=== PATIENT | male | born 1950 | race Caucasian/White ===

== ENCOUNTER 2024-03-14 12:11 | Inpatient (IN) | payer BC ==
[2024-03-14] MEDS ORDERED: Sodium Chloride 0.9% 100 ML ONE (12:30)
[2024-03-14] MEDS ORDERED: Fentanyl 250 MCG/5 ML VIAL ONE ×2 (12:34→15:08)
[2024-03-14] MEDS ORDERED: Midazolam HCl 2 mg/2 ml Vial ONE ×4 (12:34→20:00)
[2024-03-14] MEDS ORDERED: Lidocaine 2% PF 5 ML VIAL ONE ×2 (12:34→13:33)
[2024-03-14] MEDS ORDERED: PROPOFOL 20 ML ONE ×2 (12:34→13:33)
[2024-03-14] MEDS ORDERED: Rocuronium Bromide 10 MG/ML (10ML VIAL) ONE ×2 (12:36→17:45)
[2024-03-14] MEDS ORDERED: Etomidate 40 MG (20 mL) VIAL ONE (13:32)
[2024-03-14 13:45] LABS: #Basophils Less than 0.03 10x3/uL (0.0-0.2); %Basophils 0.3 % (0.0-1.0); %Eosinophils 1.9 % (0.0-10.0); %Lymphocytes 31.8 % (21.0-51.0); %Monocytes 7.3 % (0.0-10.0); %Neutrophils 58.5 % (42.0-75.0); Hematocrit 44.1 % (42.0-52.0); Hemoglobin 14.8 g/dL (14.0-18.0); Mean Corpuscular HGB CONC 33.6 g/dL (32.0-36.0); Mean Corpuscular Hemoglobin 29.9 pg (27.0-31.0); Mean Corpuscular Volume 89.1 fL (78.0-98.0); Mean Platelet Volume 11.2 fL (7.4-10.4); Platelet Count 160 10x3/uL (130-400); RBC Distribution Width 12.2 % (11.5-14.5); Red Blood Cell (RBC) Count 4.95 mill/uL (4.70-6.10)
[2024-03-14 13:55] LABS: Hemoglobin A1c 4.8 % (4.0-6.0)
[2024-03-14 13:59] LABS: Prothrombin Time 12.8 sec (12.0-14.7)
[2024-03-14 14:00] LABS: PTT 31.5 sec (22.9-36.1)
[2024-03-14] MEDS ORDERED: Insulin Regular, Human 100 UNIT/ML 10 ML VIAL ONE (14:11)
[2024-03-14 14:21] LABS: Anion Gap 10 mmol/L (10-20); BUN (Urea Nitrogen) 23 mg/dL (8.4-25.7); Calc. Creatinine Clearance 0 mL/min (70-130); Calcium 9.5 mg/dL (7.8-10.44); Carbon Dioxide 27 mmol/L (23-31); Cardiac Risk 4.2 (Less than 4.5); Chloride 107 mmol/L (98-107); Cholesterol 212 mg/dl (< 200 Desired); Estimated GFR 76; Glucose 87 mg/dL (83-110); HDL Cholesterol 50 mg/dL (>60 Neg Risk); LDL Cholesterol, Calculated 144 mg/dL; Potassium 4.1 mmol/L (3.5-5.1); Sodium 140 mmol/L (136-145); Triglycerides 91 mg/dL (Less than 150)
[2024-03-14] MEDS ORDERED: Papaverine 60 MG/2 ML VIAL ONE (14:35)
[2024-03-14] MEDS ORDERED: Thrombin 5000 UNITS/5 ML VIAL ONE (14:35)
[2024-03-14] MEDS ORDERED: ePHEDrine Sulfate 50 MG/10 ML VIAL ONE (14:35)
[2024-03-14] MEDS ORDERED: Calcium Chloride 1 GM/10 ML Abboject SYRINGE ONE (14:35)
[2024-03-14] MEDS ORDERED: Aminocaproic Acid 5 GM/20 ML VIAL ONE ×2 (14:35→18:47)
[2024-03-14] MEDS ORDERED: Protamine Sulfate 250 MG/25 ML VIAL ONE (14:35)
[2024-03-14] MEDS ORDERED: Mannitol 12.5 GM/50 ML ONE (14:35)
[2024-03-14] MEDS ORDERED: Heparin 5,000 UNITS/ML VIAL ONE ×2 (14:35→16:53)
[2024-03-14] MEDS ORDERED: PHENYLEPHRINE-NS 100 MCG/ML 10 ML SYRINGE ONE (14:35)
[2024-03-14] MEDS ORDERED: Vancomycin 1 GM VIAL ONE (14:35)
[2024-03-14] MEDS ORDERED: Heparin 30,000 units/30 ml VIAL ONE (14:35)
[2024-03-14] MEDS ORDERED: Sodium Bicarb 50 mEq/50 ML VIAL ONE (14:35)
[2024-03-14] MEDS ORDERED: Cardioplegic Soln 1,000 ML BAG ONE (14:35)
[2024-03-14] MEDS ORDERED: Magnesium 5 GM/10 ML VIAL ONE (14:35)
[2024-03-14] MEDS ORDERED: Lidocaine 2% PF 100 mg/5 ml Syringe ONE (14:35)
[2024-03-14] MEDS ORDERED: Potassium Chloride 60 mEq (30 mL) VIAL ONE (14:35)
[2024-03-14] MEDS ORDERED: EPINEPHrine 1 MG/ML VIAL ONE (15:14)
[2024-03-14] MEDS ORDERED: Vecuronium 10 MG VIAL ONE (20:01)
[2024-03-14] MEDS ORDERED: Guaifenesin DM 100-10/5 ML UDCUP PO PRN (21:19)
[2024-03-14] MEDS ORDERED: Ipratropium/Albuterol 3 ML NEB NEB PRN (21:19)
[2024-03-14] MEDS ORDERED: Promethazine HCl 25 MG/ML VIAL IM PRN (21:19)
[2024-03-14] MEDS ORDERED: Potassium Chloride 20 MEQ (100 mL) BAG IVPB PRN (21:19)
[2024-03-14] MEDS ORDERED: hydrALAZINE 20 MG/ML VIAL SLOW IVP PRN (21:19)
[2024-03-14] MEDS ORDERED: Morphine 2 MG/ML VIAL SLOW IVP PRN (21:19)
[2024-03-14] MEDS ORDERED: Bisacodyl 10 MG SUPP PR PRN (21:19)
[2024-03-14] MEDS ORDERED: Bisacodyl 5 MG TAB PO PRN (21:19)
[2024-03-14] MEDS ORDERED: Mag-Al 1200 mg/1200 mg/30 ML UDCUP PO PRN (21:19)
[2024-03-14] MEDS ORDERED: Albumin 5% 12.5 GM (250 mL) BOT IVPB PRN (21:19)
[2024-03-14] MEDS ORDERED: HYDROcodone/Acetaminophen 5/325 mg Tablet PO PRN ×2 (21:19)
[2024-03-14] MEDS ORDERED: Dextrose 50% Abboject 50 ML SYRINGE SLOW IVP PRN (21:30)
[2024-03-14] MEDS ORDERED: INSULIN REGULAR IN 0.9 % NACL 100 UNITS in Premix 1 BAG IVPB SCH (21:30)
[2024-03-14] MEDS ORDERED: Dextrose 5% in Water 1,000 ML IV PRN (21:30)
[2024-03-14] MEDS ORDERED: Glucagon 1 MG/ML KIT SC PRN (21:30)
[2024-03-14 21:32] LABS: Actual Bicarbonate (HCO3a) 19.3 mEq/L (22-28); Base Excess (BEa) -7.6 mEq/L (-2.0 to +3.0); CO2 Tension 44.3 mmHg (35.0-45.0); Calcium, Ionized (arterial) 1.09 mmol/L (1.12-1.30); Carboxyhemoglobin (COHb) 0.6 gm% (0.0-3.0); Hematocrit-ABG 40 % (42.0-52.0); Hemoglobin (Hb) 13.5 g/dL (14.0-18.0); O2 Tension (PaO2), arterial 170.9 mmHg (> 70.0); Potassium - ABG Lab 3.97 mmol/L (3.70-5.30); pH, Arterial 7.257 (7.35-7.45)
[2024-03-14 21:37] LABS: Puncture Site A-LINE
[2024-03-14 21:38] LABS: ALV-art Gradient 201.525 mmHg (0-20)
[2024-03-14 21:43] LABS: #Basophils 0.03 10x3/uL (0.0-0.2); %Basophils 0.1 % (0.0-1.0); %Eosinophils 0.4 % (0.0-10.0); %Lymphocytes 9.5 % (21.0-51.0); %Monocytes 5.4 % (0.0-10.0); %Neutrophils 83.9 % (42.0-75.0); Hematocrit 37.9 % (42.0-52.0); Mean Corpuscular HGB CONC 34.3 g/dL (32.0-36.0); Mean Corpuscular Hemoglobin 29.8 pg (27.0-31.0); Mean Corpuscular Volume 86.9 fL (78.0-98.0); Mean Platelet Volume 11.4 fL (7.4-10.4); Platelet Count 156 10x3/uL (130-400); RBC Distribution Width 12.1 % (11.5-14.5); Red Blood Cell (RBC) Count 4.36 mill/uL (4.70-6.10)
[2024-03-14] MEDS: CEFAZOLIN 2 GM in Sodium Chloride 0.9% 100 ML IVPB SCH (21:52)
[2024-03-14 21:53] LABS: INR-International Normal Ratio 1.1; Prothrombin Time 14.2 sec (12.0-14.7)
[2024-03-14] MEDS: Magnesium 2 GM/50 ML(in water) 2 GM in Premix 1 BAG IVPB SCH (21:53)
[2024-03-14] MEDS: fentaNYL 50 mcg/mL 1 mL Vial SLOW IVP PRN (21:53)
[2024-03-14 21:54] LABS: PTT 32.2 sec (22.9-36.1)
[2024-03-14 21:59] LABS: Anion Gap 13 mmol/L (10-20); BUN (Urea Nitrogen) 19 mg/dL (8.4-25.7); Calc. Creatinine Clearance 0 mL/min (70-130); Calcium 7.6 mg/dL (7.8-10.44); Carbon Dioxide 19 mmol/L (23-31); Chloride 114 mmol/L (98-107); Estimated GFR 92; Glucose 143 mg/dL (83-110); Potassium 4.1 mmol/L (3.5-5.1); Sodium 142 mmol/L (136-145)
[2024-03-14] MEDS: Sodium Chloride 0.9% 1,000 ML IV SCH (22:28)
[2024-03-14] MEDS: Post-Op Insulin Drip Protocol IVPB ONE (22:28)
[2024-03-14] MEDS: Acetaminophen 325 MG TAB PO SCH (22:29)
[2024-03-14] MEDS: Sodium Bicarb 50 MEQ/50 ML Abboject 8.4% SYRINGE IVP SCH (22:32)
[2024-03-14] MEDS: niCARdipine 25 MG in Sodium Chloride 0.9% 250 ML 250 ML IVPB SCH (22:40)
[2024-03-14 22:54] VITALS: BMI 31.4
[2024-03-15] MEDS: Aspirin Chewable 81 MG TAB PO SCH
[2024-03-15] MEDS: Ketorolac Tromethamine 30 MG (1 mL) VIAL IVP SCH (00:03)
[2024-03-15] MEDS: Insulin Regular, Human 100 UNIT/ML 10 ML VIAL SC PRN (00:23)
[2024-03-15] MEDS: fentaNYL 50 mcg/mL 1 mL Vial SLOW IVP PRN (03:26)
[2024-03-15] MEDS: Albumin 5% 12.5 GM (250 mL) BOT IVPB PRN (04:33)
[2024-03-15] MEDS: NOREPINEPHRINE 8 MG/250 ML-D5W 250 ML IVPB PRN (04:34)
[2024-03-15 06:06] LABS: #Basophils Less than 0.03 10x3/uL (0.0-0.2); #Eosinphils Less than 0.03 10x3/uL (0.0-0.7); %Basophils 0.1 % (0.0-1.0); %Lymphocytes 3.4 % (21.0-51.0); %Monocytes 7.1 % (0.0-10.0); %Neutrophils 88.9 % (42.0-75.0); Hematocrit 33.4 % (42.0-52.0); Hematocrit 34.4 % (42.0-52.0); Hemoglobin 11.2 g/dL (14.0-18.0); Hemoglobin 11.5 g/dL (14.0-18.0); Mean Corpuscular HGB CONC 33.5 g/dL (32.0-36.0); Mean Corpuscular Hemoglobin 30.1 pg (27.0-31.0); Mean Corpuscular Volume 89.8 fL (78.0-98.0); Mean Platelet Volume 12.2 fL (7.4-10.4); Platelet Count 170 10x3/uL (130-400); RBC Distribution Width 12.6 % (11.5-14.5); Red Blood Cell (RBC) Count 3.72 mill/uL (4.70-6.10)
[2024-03-15 06:23] LABS: Anion Gap 14 mmol/L (10-20); BUN (Urea Nitrogen) 20 mg/dL (8.4-25.7); Calc. Creatinine Clearance 105 mL/min (70-130); Calcium 7.5 mg/dL (7.8-10.44); Carbon Dioxide 19 mmol/L (23-31); Chloride 113 mmol/L (98-107); Estimated GFR 92; Glucose 147 mg/dL (83-110); Potassium 4.1 mmol/L (3.5-5.1); Sodium 142 mmol/L (136-145)
[2024-03-15 07:51] LABS: Actual Bicarbonate (HCO3a) 21.5 mEq/L (22-28); Base Excess (BEa) -2.4 mEq/L (-2.0 to +3.0); CO2 Tension 33.8 mmHg (35.0-45.0); Calcium, Ionized (arterial) 1.01 mmol/L (1.12-1.30); Carboxyhemoglobin (COHb) 0.4 gm% (0.0-3.0); Hematocrit-ABG 34 % (42.0-52.0); Hemoglobin (Hb) 11.6 g/dL (14.0-18.0); O2 Tension (PaO2), arterial 108.7 mmHg (> 70.0); Potassium - ABG Lab 3.96 mmol/L (3.70-5.30); pH, Arterial 7.421 (7.35-7.45)
[2024-03-15 07:52] LABS: Puncture Site ALINE
[2024-03-15] MEDS: Magnesium 2 GM/50 ML(in water) 2 GM in Premix 1 BAG IVPB SCH (08:27)
[2024-03-15] MEDS: Aspirin 325 MG TAB PO SCH (08:27)
[2024-03-15] MEDS: Famotidine/PF 20 mg/2ml Vial SLOW IVP SCH (08:28)
[2024-03-15] MEDS: Ondansetron PF 4 MG/2 ML Vial IVP PRN (13:52)
[2024-03-15] MEDS ORDERED: Furosemide 20 MG TAB PO SCH (14:15)
[2024-03-15] MEDS: Heparin 5,000 UNITS/ML VIAL SC SCH (14:34)
[2024-03-15] MEDS: Atorvastatin Calcium 40 MG TAB PO SCH (20:17)
[2024-03-16 05:33] LABS: Anion Gap 11 mmol/L (10-20); BUN (Urea Nitrogen) 32 mg/dL (8.4-25.7); Calc. Creatinine Clearance 66 mL/min (70-130); Calcium 7.8 mg/dL (7.8-10.44); Carbon Dioxide 24 mmol/L (23-31); Chloride 108 mmol/L (98-107); Estimated GFR 55; Glucose 119 mg/dL (83-110); Sodium 139 mmol/L (136-145)
[2024-03-16] MEDS: Furosemide 20 MG TAB PO SCH (07:56)
[2024-03-16 08:18] LABS: Hemoglobin 9.5 g/dL (14.0-18.0); Mean Corpuscular HGB CONC 33.9 g/dL (32.0-36.0); Mean Corpuscular Hemoglobin 30.2 pg (27.0-31.0); Mean Corpuscular Volume 88.9 fL (78.0-98.0); Mean Platelet Volume 12.7 fL (7.4-10.4); Platelet Count 119 10x3/uL (130-400); RBC Distribution Width 12.9 % (11.5-14.5); Red Blood Cell (RBC) Count 3.15 mill/uL (4.70-6.10)
[2024-03-16 08:26] LABS: Platelet Adequacy Comment Platelets Decreased; Polychromasia SLIGHT = 2-3 cells HPF (0-2)
[2024-03-16 08:27] LABS: #Basophils Less than 0.03 10x3/uL (0.0-0.2); #Eosinphils Less than 0.03 10x3/uL (0.0-0.7); %Basophils 0.2 % (0.0-1.0); %Eosinophils 0.2 % (0.0-10.0); %Lymphocytes 8.6 % (21.0-51.0); %Monocytes 8.5 % (0.0-10.0); %Neutrophils 82.1 % (42.0-75.0)
[2024-03-16] MEDS: Amiodarone 200 MG TAB PO SCH ×2 (12:55→21:58)
[2024-03-16] MEDS: Amiodarone 150 MG, Admixture Fee 1 EACH in Dextrose 5% in Water 100 ML IVPB SCH (13:20)
[2024-03-16] MEDS: Amiodarone 450 MG, Admixture Fee 1 EACH in Dextrose 5% in Water 250 ML IVPB SCH (14:52)
[2024-03-17 04:56] LABS: #Basophils Less than 0.03 10x3/uL (0.0-0.2); %Basophils 0.1 % (0.0-1.0); %Eosinophils 0.5 % (0.0-10.0); %Lymphocytes 12.7 % (21.0-51.0); %Neutrophils 78.3 % (42.0-75.0); Hematocrit 27.9 % (42.0-52.0); Hemoglobin 9.3 g/dL (14.0-18.0); Mean Corpuscular HGB CONC 33.3 g/dL (32.0-36.0); Mean Corpuscular Hemoglobin 29.5 pg (27.0-31.0); Mean Corpuscular Volume 88.6 fL (78.0-98.0); Platelet Count 133 10x3/uL (130-400); RBC Distribution Width 12.8 % (11.5-14.5); Red Blood Cell (RBC) Count 3.15 mill/uL (4.70-6.10)
[2024-03-17 05:14] LABS: Anion Gap 12 mmol/L (10-20); BUN (Urea Nitrogen) 39 mg/dL (8.4-25.7); Calc. Creatinine Clearance 66 mL/min (70-130); Calcium 8.2 mg/dL (7.8-10.44); Carbon Dioxide 22 mmol/L (23-31); Chloride 105 mmol/L (98-107); Estimated GFR 54; Glucose 118 mg/dL (83-110); Potassium 3.7 mmol/L (3.5-5.1); Sodium 135 mmol/L (136-145)
[2024-03-17] MEDS: Pantoprazole DR 40 MG TAB PO SCH (18:00)
[2024-03-17] MEDS: Metoprolol Tartrate 25 MG TAB PO SCH (20:05)
[2024-03-18] MEDS: Pantoprazole DR 40 MG TAB PO SCH (09:17)
[2024-03-18] MEDS: guaiFENesin ER 600 MG TAB PO SCH ×2 (11:14→19:22)
[2024-03-19 08:47] VITALS: TEMP 97.6
[2024-03-19 11:09] VITALS: BP 133/61
[2024-03-20 13:24] LABS: Actual Bicarbonate (HCO3a) 22.7 mEq/L (22-28); Analyzer IN Cardio OR; Base Excess (BEa) -1.3 mEq/L (-2.0 to +3.0); Calcium, Ionized (arterial) 1.17 mmol/L (1.12-1.30); Carboxyhemoglobin (COHb) 0.9 gm% (0.0-3.0); Hematocrit-ABG 42 % (42.0-52.0); Hemoglobin (Hb) 14.3 g/dL (14.0-18.0); O2 Tension (PaO2), arterial 130.9 mmHg (> 70.0); Potassium - ABG Lab 3.77 mmol/L (3.70-5.30); pH, Arterial 7.418 (7.35-7.45)
[2024-03-20 13:24] LABS: Actual Bicarbonate (HCO3a) 21.3 mEq/L (22-28); Analyzer IN Cardio OR; Base Excess (BEa) -4.3 mEq/L (-2.0 to +3.0); CO2 Tension 41.1 mmHg (35.0-45.0); Calcium, Ionized (arterial) 1.06 mmol/L (1.12-1.30); Carboxyhemoglobin (COHb) 0.3 gm% (0.0-3.0); Hematocrit-ABG 30 % (42.0-52.0); Hemoglobin (Hb) 10.3 g/dL (14.0-18.0); O2 Tension (PaO2), arterial 204.6 mmHg (> 70.0); Potassium - ABG Lab 4.09 mmol/L (3.70-5.30); pH, Arterial 7.333 (7.35-7.45)
[2024-03-20 13:25] LABS: Actual Bicarbonate (HCO3a) 23.7 mEq/L (22-28); Analyzer IN Cardio OR; Base Excess (BEa) -1.8 mEq/L (-2.0 to +3.0); CO2 Tension 43.5 mmHg (35.0-45.0); Calcium, Ionized (arterial) 1.02 mmol/L (1.12-1.30); Carboxyhemoglobin (COHb) 0.3 gm% (0.0-3.0); Hematocrit-ABG 31 % (42.0-52.0); Hemoglobin (Hb) 10.4 g/dL (14.0-18.0); O2 Tension (PaO2), arterial 477.4 mmHg (> 70.0); Potassium - ABG Lab 4.68 mmol/L (3.70-5.30); pH, Arterial 7.355 (7.35-7.45)
[2024-03-20 13:25] LABS: Actual Bicarbonate (HCO3a) 22.5 mEq/L (22-28); Analyzer IN Cardio OR; Base Excess (BEa) -3.5 mEq/L (-2.0 to +3.0); CO2 Tension 44.3 mmHg (35.0-45.0); Calcium, Ionized (arterial) 1.14 mmol/L (1.12-1.30); Carboxyhemoglobin (COHb) 0.8 gm% (0.0-3.0); Hematocrit-ABG 40 % (42.0-52.0); Hemoglobin (Hb) 13.6 g/dL (14.0-18.0); O2 Tension (PaO2), arterial 474.5 mmHg (> 70.0); Potassium - ABG Lab 3.68 mmol/L (3.70-5.30); pH, Arterial 7.324 (7.35-7.45)
[2024-03-20 13:25] LABS: Actual Bicarbonate (HCO3a) 24.1 mEq/L (22-28); Analyzer IN Cardio OR; Base Excess (BEa) -1.7 mEq/L (-2.0 to +3.0); CO2 Tension 44.8 mmHg (35.0-45.0); Calcium, Ionized (arterial) 1.04 mmol/L (1.12-1.30); Carboxyhemoglobin (COHb) 0.3 gm% (0.0-3.0); Hematocrit-ABG 32 % (42.0-52.0); O2 Tension (PaO2), arterial 503.6 mmHg (> 70.0); Potassium - ABG Lab 4.59 mmol/L (3.70-5.30); pH, Arterial 7.348 (7.35-7.45)
[2024-03-20 13:26] LABS: Puncture Site Arterial Line
[2024-03-20 13:26] LABS: Actual Bicarbonate (HCO3a) 23.5 mEq/L (22-28); Analyzer IN Cardio OR; Base Excess (BEa) -2.4 mEq/L (-2.0 to +3.0); Calcium, Ionized (arterial) 1.03 mmol/L (1.12-1.30); Carboxyhemoglobin (COHb) 0.6 gm% (0.0-3.0); Hematocrit-ABG 33 % (42.0-52.0); Hemoglobin (Hb) 11.3 g/dL (14.0-18.0); O2 Tension (PaO2), arterial 513.3 mmHg (> 70.0); Potassium - ABG Lab 4.48 mmol/L (3.70-5.30); pH, Arterial 7.335 (7.35-7.45)
[2024-03-20 13:26] LABS: Actual Bicarbonate (HCO3a) 23.7 mEq/L (22-28); Analyzer IN Cardio OR; Base Excess (BEa) -2.4 mEq/L (-2.0 to +3.0); CO2 Tension 46.4 mmHg (35.0-45.0); Calcium, Ionized (arterial) 1.02 mmol/L (1.12-1.30); Carboxyhemoglobin (COHb) 0.1 gm% (0.0-3.0); Hematocrit-ABG 32 % (42.0-52.0); Hemoglobin (Hb) 10.8 g/dL (14.0-18.0); O2 Tension (PaO2), arterial 451.3 mmHg (> 70.0); Potassium - ABG Lab 4.67 mmol/L (3.70-5.30); pH, Arterial 7.326 (7.35-7.45)
[2024-03-20 13:27] LABS: Puncture Site Arterial Line
[2024-03-20 13:28] LABS: Puncture Site Arterial Line
[2024-03-20 13:28] LABS: Puncture Site Arterial Line
[2024-03-20 13:28] LABS: Puncture Site Arterial Line
[2024-03-20 13:29] LABS: Puncture Site Arterial Line
[2024-03-20 13:29] LABS: Puncture Site Arterial Line
== END 2024-03-19 12:46 | disposition home or self-care (01) | DRG 236 ==
LOC: CCU 12:28 → 2NO 03-16 20:37
PROVIDERS: ADMIT Student in an Organized Health Care Education/Training Program; ATTEND Student in an Organized Health Care Education/Training Program
PROC: 02100Z9 Bypass Coronary Artery, One Artery from Left Internal Mammary, Open Approach (ICD-10-PCS; principal; 2024-03-14)
PROC: 021309W Bypass Coronary Artery, Four or More Arteries from Aorta with Autologous Venous Tissue, Open Approach (ICD-10-PCS; 2024-03-14)
PROC: 06BP4ZZ Excision of Right Saphenous Vein, Percutaneous Endoscopic Approach (ICD-10-PCS; 2024-03-14)
PROC: 5A1221Z Performance of Cardiac Output, Continuous (ICD-10-PCS; 2024-03-14)
PROC: 02L70CK Occlusion of Left Atrial Appendage with Extraluminal Device, Open Approach (ICD-10-PCS; 2024-03-14)
DX: I25.110 Atherosclerotic heart disease of native coronary artery with unstable angina pectoris (principal); I10 Essential (primary) hypertension; E78.5 Hyperlipidemia, unspecified; I48.91 Unspecified atrial fibrillation; Z90.49 Acquired absence of other specified parts of digestive tract; Z88.5 Allergy status to narcotic agent; Z79.82 Long term (current) use of aspirin; Z79.899 Other long term (current) drug therapy
CPT/HCPCS: 36415; 36416; 36430; 71045; 80048; 80061; 82805; 83036; 84132; 85014; 85018; 85025; 85610; 85730; 86850; 86900; 86901; 93005; 93010; 93306; 93459; 93798; 94002; 94003; 94150; 97139; 99152; A4311; A4648; C1751; C1769; C1894; J0153; J0171; J0282; J1644; J1815; J1885; J2001; J2150; J2250; J2405; J2440; J2704; J2720; J3010; J3370; J3475; J3480; J3490; J7030; J7050; J7070; P9045; Q9967; S0017

== ENCOUNTER 2024-07-03 12:30 | Outpatient (CLI) | payer BC | END 2024-07-03 12:31 | disposition home or self-care (01) | LOC: BICCT 12:30 | PROVIDERS: ATTEND Student in an Organized Health Care Education/Training Program | DX: I25.110 Atherosclerotic heart disease of native coronary artery with unstable angina pectoris (principal); J90 Pleural effusion, not elsewhere classified; I77.810 Thoracic aortic ectasia; R91.1 Solitary pulmonary nodule; N13.30 Unspecified hydronephrosis | CPT/HCPCS: 36415; 71275; 82565 ==